=== PATIENT | male | born 1985 | race American Indian/Alaskan Native ===

== ENCOUNTER 2016-09-06 12:52 | Emergency (ER) | payer SELFPAY ==
--- NOTE | 2016-09-06 16:29 | XRay Report ---
Left hip: Pain. The contour of the femoral head is unremarkable. There is good preservation of the joint space. The bone is well positioned within the fossa. There is inhomogeneity of the femoral head with areas of scattered sclerosis. Comparison with the right hip on the AP projection demonstrates a similar pattern however there are irregular lucencies in the right femoral head is well. The structures otherwise appear generally unremarkable. Impressions: The findings raise suspicion of this patient having aseptic necrotic changes in the femoral heads.
[2016-09-06] MEDS ORDERED: PERCOCET 5/325 PO ONE (17:13)
--- NOTE | 2016-09-06 17:47 | Emergency Department Report ---
Entered by ISIDRO YOUNG, acting as scribe for FAY DEE PA. ED Lower Extremity HPI - General Chief Complaint: Extremity Problem,Nontraumatic Stated Complaint: AVASCULAR NECROSIS Time Seen by Provider: 09/06/16 16:30 Source: patient, family Mode of arrival: Ambulatory Limitations: No Limitations - History of Present Illness Initial Comments: 31 y/o male with a PMHx of HIV and avascular necrosis presents to the ED c/o left hip pain that began at an unknown onset. Rates pain a 10/10 in severity. denies left hip swelling, numbness and tingling. Took Ibuprofen with no relief. Notes compliancy with infectious disease doctor appointments and medications. Patient brought to the ED by his sister. Allergic to penicillins. MD Complaint: other (left hip pain) -: year(s) Injury: Hip: Left (pain) Type of Injury: unknown Place: home Severity: moderate Severity scale (0 -10): 10 Improves With: nothing (Took Ibuprofen with no relief) Worsens With: nothing Other Symptoms: other (left sided low back pain) Associated Symptoms: ambulatory. denies: snap/pop sensation, swelling, numbness , tingling Treatments Prior to Arrival: NSAIDS - Related Data Previous Rx's Medication Instructions Recorded Last Taken Type oxyCODONE /ACETAMINOPHEN [Percocet 1 tab PO Q6HR PRN #20 tablet 04/17/15 Unknown Rx 5/325] traMADol [Ultram] 50 mg PO Q6HR PRN #20 tablet 09/06/16 Unknown Rx Allergies Allergy/AdvReac Type Severity Reaction Status Date / Time Penicillins Allergy Hives Verified 09/06/16 14:49 ED Review of Systems Comment: All other systems reviewed and negative Constitutional: no symptoms reported. denies: other (tingling) Respiratory: no symptoms reported Cardiovascular: denies: chest pain, palpitations, edema, syncope Gastrointestinal: denies: abdominal pain, nausea, vomiting, diarrhea Musculoskeletal: arthralgia, other (left hip pain). denies: joint swelling Skin: denies: rash Neurological: abnormal gait ( Avascular necrosis). denies: headache, weakness, numbness, paresthesias, confusion, vertigo ED Past Medical Hx - Past Medical History Previous Medical History?: Yes Hx HIV: Yes Additional medical history: Avascular necrosis - Surgical History Past Surgical History?: No - Family History Family history: hypertension - Social History Smoking Status: Current Every Day Smoker Substance Use Type: Alcohol - Medications Home Medications: Home Medications Medication Instructions Recorded Confirmed Last Taken Type oxyCODONE /ACETAMINOPHEN [Percocet 1 tab PO Q6HR PRN #20 tablet 04/17/15 Unknown Rx 5/325] traMADol [Ultram] 50 mg PO Q6HR PRN #20 tablet 09/06/16 Unknown Rx ED Physical Exam - General Limitations: No Limitations General appearance: alert, in no apparent distress - Head Head exam: Present: atraumatic, normocephalic - Eye Eye exam: Present: normal appearance, PERRL, EOMI. Absent: scleral icterus, conjunctival injection Pupils: Present: normal accommodation - ENT ENT exam: Present: normal exam, normal orophraynx, mucous membranes moist - Neck Neck exam: Present: normal inspection, full ROM. Absent: tenderness, meningismus, lymphadenopathy, thyromegaly - Respiratory Respiratory exam: Present: normal lung sounds bilaterally (no adventitious breath sounds). Absent: respiratory distress, chest wall tenderness - Cardiovascular Cardiovascular Exam: Present: regular rate, normal rhythm, normal heart sounds. Absent: systolic murmur, diastolic murmur, rubs, gallop - GI/Abdominal GI/Abdominal exam: Present: soft, normal bowel sounds. Absent: distended, tenderness, guarding, rebound, rigid - Extremities Exam Extremities exam: Present: full ROM (limited adduction and abduction due to left hip pain), tenderness (left hip joint tenderness), normal capillary refill. Absent: pedal edema, joint swelling, calf tenderness - Expanded Lower Extremity Exam Left Hip exam: Present: normal inspection, tenderness (left hip joint). Absent: full ROM (left hip pain present with adduction and abduction), swelling, abrasion, laceration, ecchymosis, deformity, crepidus, dislocation, erythema, external rotation, internal rotation, shortening, pelvic stability Upper Leg exam: Present: normal inspection, full ROM. Absent: tenderness, swelling, abrasion, laceration, ecchymosis, deformity, crepidus, dislocation, erythema Knee exam: Present: normal inspection, full ROM, full knee extension. Absent: tenderness, swelling, abrasion, laceration, ecchymosis, deformity, crepidus, dislocation, erythema, effusion, pain w/ pronation/supination, posterior draw sign, pain/laxity with valgus, pain/laxity with varus Lower Leg exam: Present: normal inspection, full ROM. Absent: tenderness, swelling, abrasion, laceration, ecchymosis, deformity, crepidus, dislocation, erythema, palpable cord, Agustín's sign Ankle exam: Present: normal inspection, full ROM. Absent: tenderness, swelling , abrasion, laceration, ecchymosis, deformity, crepidus, dislocation, erythema Foot/Toe exam: Present: normal inspection, full ROM. Absent: tenderness, swelling, abrasion, laceration, ecchymosis, deformity, crepidus, dislocation, erythema, amputation, puncture wound, foreign body, calcaneal tenderness, tenderness at base of 5th metatarsal, nail avulsion, subungual hematoma Neuro vascular tendon exam: Present: no vascular compromise (2+ pulses). Absent : pulse deficit, abnormal cap refill, motor deficit, sensory deficit, tendon deficit, extremity cold to touch, pallor, abnormal 2-point discrimination, decreased fine/light touch, foot drop, peroneal nerve deficit, significant pain with passive ROM of distal joint Gait: Positive: observed and limited by pain (observed and limping gait due to left hip pain) - Back Exam Back exam: Present: normal inspection, full ROM. Absent: tenderness, CVA tenderness (R), CVA tenderness (L), muscle spasm, paraspinal tenderness, vertebral tenderness, rash noted - Neurological Exam Neurological exam: Present: alert, oriented X3, abnormal gait (Due left hip pain that is chronic), reflexes normal - Psychiatric Psychiatric exam: Present: normal affect, normal mood - Skin Skin exam: Present: warm, dry, intact, normal color. Absent: rash ED Course Vital Signs 09/06/16 14:50 Temperature 98.3 F Pulse Rate 73 Respiratory 18 Rate Blood Pressure 115/81 O2 Sat by Pulse 98 Oximetry - Reevaluation(s) Reevaluation #1: 09/06/16 17:41 given Percocet 5/325 2 tablets emergency room to manage pain. ED Lower Extremity MDM - Radiology Data Radiology results: report reviewed X-ray of the left hip revealed a septic avascular neck - Medical Decision Making He course: Patient here complaining of left hip pain and he has a history of HIV and avascular necrosis to left hip. He said he reports some and he wanted to make sure that it's not infected. He said he started working 2 jobs and he noticed this after his second job. X-ray results show AVN. Patient has appointment with [facility] and he is on medication. I discussed with him his x -ray results and told him that he will need to follow-up with orthopedic doctor for follow-up of chronic hip pain. Patient was understanding of discharge diagnosis and treatment plan and he was given Percocet 5/325 2 tablets emergency room and discharged home with prescription for tramadol ED Disposition Clinical Impression: Aseptic necrosis bone, Arthralgia of left hip Disposition: DISCHARGED TO HOME OR SELFCARE Is pt being admited?: No Does the pt Need Aspirin: No Condition: Stable Instructions: Arthralgia (ED) Additional Instructions: Take Ultram as prescribed for pain. Follow Up with orthopedic doctor as instructed. Keep Appointment with eye clinic. Prescriptions: traMADol [Ultram] 50 mg PO Q6HR PRN #20 tablet PRN Reason: Pain Referrals: SHILOH BEACH MD [Staff Physician] - 09/08/16 Forms: Work/School Release Form(ED) This documentation as recorded by the HECTOR ricardo JASMINE,accurately reflects the service I personally performed and the decisions made by me,FAY DEE PA.
[2016-09-06 18:04] VITALS: BP 118/74
== END 2016-09-06 18:03 | disposition home or self-care (01) ==
LOC: ED 12:52
DX: M87.9 Osteonecrosis, unspecified (principal); F17.200 Nicotine dependence, unspecified, uncomplicated
CPT/HCPCS: 99283